=== PATIENT | female | born 1970 | race Caucasian/White ===

== ENCOUNTER 2019-01-19 06:37 | Day surgery (SDC) | payer OTHER ==
[~2019-01-19] VITALS: Ht 162.6 cm; Wt 54.5 kg
[2019-01-19] VITALS (24 sets, daily range): BP systolic 91–120; BP diastolic 46–80; PULSE 60–83; RESP 15–22; Ht 162.6 cm; Wt 54.5 kg
[~2019-01-19 06:37] MED LIST: FLUO10CA17 PO; LAMO100T83 PO; THYR30TA PO
[2019-01-19] MEDS ORDERED: CEFAZOLIN 1 GM INJ ONE (07:00)
[2019-01-19] MEDS ORDERED: SOD CHLORIDE 0.9% 1,000 ML IV SCH (07:00)
[2019-01-19] MEDS ORDERED: CEFAZOLIN 2 GM/50 ML (PMX) 50 ML IVPB SCH (07:00)
[2019-01-19] MEDS ORDERED: CARI350T29 PO (07:28)
[2019-01-19] MEDS ORDERED: SUMA100T3 PO (07:28)
[2019-01-19] MEDS ORDERED: BUPR-165 PO (07:28)
--- NOTE | 2019-01-19 07:42 | PREAC ---
Date/Time of Note Date/Time of Note DATE: 01/19/19 TIME: 07:42 Anesthesia Eval and Record Evaluation Time Pre-Procedure Interview DATE: 01/19/19 TIME: 07:42 Age 48 Sex female NPO: 8 hrs Preoperative diagnosis Bilateral inguinal hernia Planned procedure Laparoscopic bilateral inguinal hernia repair with mesh Past Medical History Past Medical History: Includes Endo: Hypothyroid Neuro: Other (Migraine) Psych: Anxiety Surgery & Anesthesia Issues No known issue Meds Anticoagulation: No Beta Alannah within 24 hr: No Reason Beta Alannah not given: Pt. not on B-Alannah Reported Medications Sumatriptan Succinate* (Imitrex*) 100 Mg Tablet, 150 MG PO DAILY PRN for MIGRAINE HEADACHE, TAB May repeat after 2 hours if needed; MAX 200 mg/24 hours 01/19/19 Carisoprodol* (Carisoprodol*) 350 Mg Tablet, 525 MG PO DAILY PRN for MUSCLE SPASMS, TAB 01/19/19 Bupropion Hcl* (Wellbutrin SR*) 150 Mg Tablet.sa, 150 MG PO DAILY, TAB.SA 01/19/19 Fluoxetine Hcl* (Fluoxetine Hcl*) 10 Mg Capsule, 10 MG PO DAILY, CAP 04/02/16 Discontinued Reported Medications Lamotrigine* (Lamictal*) 100 Mg Tablet, 25 MG PO BID, TAB 04/02/16 Thyroid* (Orwell Thyroid*) 30 Mg Tablet, 40 MG PO DAILY, TAB 04/02/16 Current Medications Cefazolin Sodium/ Dextrose 50 ml @ 100 mls/hr PRE-OP IVPB ; Start 01/19/19 at 07:00 Sodium Chloride 1,000 ml @ 75 mls/hr [id number] IV ; Start 01/19/19 at 07:00; Stop 01/19/19 at 19:00 Meds reviewed: Yes Allergies Coded Allergies: Latex, Natural Rubber (Verified Allergy, Intermediate, RASH, 04/02/16) diphenhydramine (Verified Allergy, Intermediate, SHOCK W/ I.V., 04/02/16) acetaminophen (Verified Allergy, Unknown, 01/19/19) codeine (Verified Allergy, Unknown, 01/19/19) ALLERGY TO CODEINE & VICODIN:NAUSEA hydrocodone (Verified Allergy, Unknown, 01/19/19) Allergies Reviewed: Yes Labs/Studies Labs Reviewed: Reviewed by anesthesiologist test: Negative Pre-procedure Exam Airway: Adequate mouth opening Mallampati: Mallampati I Teeth: Normal Lung: Normal Heart: Normal ASA Physical Status ASA physical status: 2 Emergency: None Planned Anesthetic General/MAC: ETT Planned Pain Management Parenteral pain med Pre-operative Attestations Prior to commencing anesthesia and surgery, the patient was re-evaluated, there was verification of: *The patient's identity *The results of appropriate recent lab work and preoperative vital signs *The above evaluation not changing prior to induction *Anesthetic plan, risk benefits, alternative and complications discussed with patient/family; questions answered; patient/family understands, accepts and wishes to proceed. CHERYL BERG MD Jan 19, 2019 07:42
[2019-01-19] MEDS ORDERED: PROPOFOL 20 ML ONE (07:57)
[2019-01-19] MEDS ORDERED: NEOSTIGMINE 3 MG/3 ML SYRINGE ONE (07:57)
[2019-01-19] MEDS ORDERED: GLYCOPYRROLATE 0.4 MG INJ ONE ×2 (07:57→08:17)
[2019-01-19] MEDS ORDERED: ROCURONIUM 50 MG INJ ONE (07:57)
[2019-01-19] MEDS ORDERED: LIDOCAINE 2% (SDV) 5 ML INJ ONE (07:57)
[2019-01-19] MEDS ORDERED: SUCCINYLCHOLINE CHLORIDE 100 MG/5 ML SYG IV ONE (07:57)
[2019-01-19] MEDS ORDERED: MEPERIDINE 100 MG INJ ONE (07:58)
[2019-01-19] MEDS ORDERED: BUPIVACAINE 0.25% (MPF) 30 ML INJ ONE (08:01)
[2019-01-19] MEDS ORDERED: MIDAZOLAM 1 MG/ML 2 ML INJ ONE (08:02)
[2019-01-19] MEDS ORDERED: MIDAZOLAM 1 MG/ML 2 ML INJ IV PRN (09:00)
[2019-01-19] MEDS ORDERED: ONDANSETRON 4 MG INJ IV PRN (09:00)
[2019-01-19] MEDS ORDERED: MEPERIDINE 25 MG INJ IV PRN (09:00)
[2019-01-19] MEDS ORDERED: METOCLOPRAMIDE 10 MG INJ IV PRN (09:00)
[2019-01-19] MEDS ORDERED: HYDROmorphONE 1 MG/5 ML IV SYRINGE IV PRN (09:00)
[2019-01-19] MEDS ORDERED: POLYMYXIN/BACITRACIN 1L IRRIG IRR ONE (09:14)
[2019-01-19] MEDS ORDERED: ONDANSETRON 4 MG INJ ONE (09:23)
[2019-01-19] MEDS ORDERED: METOCLOPRAMIDE 10 MG INJ ONE (09:23)
--- NOTE | 2019-01-19 10:10 | OPR ---
Date/Time of Note Date/Time of Note DATE: 01/19/19 TIME: 10:04 Operative Report Procedure Date: Jan 19, 2019 Preoperative Diagnosis bilateral incarcerated inguinal hernia Postoperative Diagnosis same Operation/Procedure Performed 1. laparoscopic right incarcerated inguinal hernia repair 2. laparoscopic left incarcerated inguinal hernia repair 3. intraabdominal implantation of 15 x 15 x bard soft mesh x 2 4. therapeutic injection of subcutaneous local anesthesia Surgeon see signature line Retail Key Holder none Anesthesia Type: general Estimated Blood Loss: 10 - 50 ml's Transfusion none Specimen none Grafts/Implants none Complications none Pt Condition Post Procedure: stable Indications This is a 48-year-old female with symptomatic incarcerated bilateral inguinal hernias. She requests surgical repair of the 2 hernias. We had a very long discussion regarding laparoscopic versus open approach and all risks benefits personnel alternatives were discussed the patient. In particular potential complications including but not limited to bleeding infection mesh migration recurrence of the hernia intra-abdominal organ injury were discussed the patient. Need for additional surgeries was also a possibility was discussed and she expressed understanding and ample time was given for all questions and shakes consents to the operation. Procedure Description Patient is taken to the OR and prepped and draped in usual sterile fashion. Surgical time was performed. IV antibiotics were given. Infraumbilical transverse incision was made at the 15 blade. Dissection with cautery carried onto the fascia. The fascia was grasped with Newton's and divided with curved Hudson scissors. 0 Vicryl U stitches placed into the fascia. Jimenez trocar was introduced. Pneumoperitoneum is established. Left periumbilical 5 mm ports were placed x2. These were placed under direct visualization. Upon initial inspection there is a right and left incarcerated hernia. On the right side laparoscopic technique with lap scopic harmonic was used to create a peritoneal flap. This was developed all the way down to the inguinal region. The pubic tubercle was identified. The inferior epigastric was identified. This was followed and tracked down all the way to the area of the indirect hernia indirect hernia is identified and the incarcerated hernia was then manually reduced. This space was opened and a 15 x 15 cm Bard soft mesh was cut to fashion and secured in place. This was secured medially at the pubic tubercle and along multiple points across the anterior superior abdominal wall. This was secured in place and then the peritoneum was resecured to the intra-abdominal wall using secure strap to cover the mesh completely. Good hemostasis established in this region. 2 additional 5 mm per umbilical ports were placed in the right side. These were placed under direct position. Laparoscopic harmonic peggy were used to develop a peritoneal flap on the left inguinal region. This was developed all the way down to the pubic tubercle and all the way laterally. This was taken down following the inferior epigastric vessels up to the area of concern. 15 x 15 cm Bard soft mesh was cut to fashion and then secured in place in this region to bolster the hernia defect after the incarcerated hernia was fully reduced. This was carried in place with secure strap to the pubic tubercle and along the anterior superior abdominal wall. Good hemostasis established. The perineal flap was then reapproximated to the anterior bowel wall complete completely covering the mesh. Good hemostasis established in both surgical sites. All ports removed under direct position. Infraumbilical 0 Vicryl U stitch was tied down. Skin was closed with running 4- 0 Monocryl. Therapeutic contains local anesthesia was injected throughout all port sites. Steri-Strips and dry dressings were applied. Eloise WATTS Jan 19, 2019 10:10
[2019-01-19] MEDS: HYDROmorphONE 1 MG/5 ML IV SYRINGE IV PRN ×5 (10:18→12:20)
[2019-01-19] MEDS ORDERED: traMADol 50 MG TAB PO ONE (10:30)
--- NOTE | 2019-01-19 11:28 | PAC ---
Date/Time of Note Date/Time of Note DATE: 01/19/19 TIME: 11:27 Post-Anesthesia Notes Post-Anesthesia Note Last documented vital signs Vital Signs Date Temp Pulse Resp B/P (MAP) Pulse Ox O2 O2 Flow FiO2 Time Delivery Rate 01/19/19 72 21 96/54 (68) 98 Room Air 10:35 01/19/19 98.7 07:05 Activity: WNL Respiratory function: WNL Cardiovascular function: WNL Mental status: Baseline Pain reasonably controlled: Yes Hydration appropriate: Yes Nausea/Vomiting absent: Yes CHERYL BERG MD Jan 19, 2019 11:28
[2019-01-19] MEDS ORDERED: OXYCODONE/ACETAMINOPHEN (5/325) TAB PO ONE (12:30)
[2019-01-19] MEDS ORDERED: ONDANSETRON 4 MG TAB PO ONE (13:30)
== END 2019-01-19 13:55 | disposition home or self-care (01) ==
LOC: SDS 06:37
PROVIDERS: ATTEND Surgery
DX: K40.00 Bilateral inguinal hernia, with obstruction, without gangrene, not specified as recurrent (principal); E03.9 Hypothyroidism, unspecified
CPT/HCPCS: 49650; J1170; J2175; J2250; J2405; J2710; J2765; Z7512; Z7610; J0690

== ENCOUNTER 2019-01-22 18:14 | Emergency (ER) | payer SELFPAY ==
[~2019-01-22 18:14] MED LIST changes: +BUPR-165 PO; +CARI350T29 PO; -LAMO100T83 PO; +SUMA100T3 PO; -THYR30TA PO
== END 2019-01-22 21:18 | disposition left against medical advice (07) ==
LOC: E/R 18:14
DX: Z53.21 Procedure and treatment not carried out due to patient leaving prior to being seen by health care provider (principal)